=== PATIENT | female | born 1980 | race African-American/Black ===

== ENCOUNTER 2018-02-27 18:02 | Inpatient (IN) | END 2018-03-02 19:09 | disposition home or self-care (01) | DRG 775 | DX: O42.02 Full-term premature rupture of membranes, onset of labor within 24 hours of rupture (principal); O70.3 Fourth degree perineal laceration during delivery; O99.824 Streptococcus B carrier state complicating childbirth; Z37.0 Single live birth; Z3A.39 39 weeks gestation of pregnancy ==